=== PATIENT | female | born 1950 | race Two or more races ===

== ENCOUNTER 2020-08-23 20:40 | Emergency (ER) | payer OTHER ==
[~2020-08-23] VITALS: Ht 154.9 cm; Wt 62.6 kg
[~2020-08-23 20:40] MED LIST: IBUPROFEN800 MG PO; LOTREL 5-10 MG1 CAP; ORPH100T PO
[2020-08-23] MEDS ORDERED: AMLODIPINE BESYL5 MG PO (21:24)
[2020-08-23] MEDS ORDERED: CANDESARTAN CIL16 MG PO (21:24)
[2020-08-24] MEDS ORDERED: DOLOGESIC 500-1 EACH PO (00:42)
== END 2020-08-24 01:09 ==
LOC: ER 20:40
DX: R51.9 Headache, unspecified (principal); Z20.828 Contact with and (suspected) exposure to other viral communicable diseases

== ENCOUNTER 2022-07-31 19:28 | Emergency (ER) | payer OTHER ==
[~2022-07-31] VITALS: Ht 154.9 cm; Wt 61.7 kg
[~2022-07-31 19:28] MED LIST changes: +AMLODIPINE BESYL5 MG PO; +CANDESARTAN CIL16 MG PO; +DOLOGESIC 500-1 EACH PO
== END 2022-07-31 22:59 | disposition home or self-care (01) ==
LOC: ER 19:28
DX: K40.90 Unilateral inguinal hernia, without obstruction or gangrene, not specified as recurrent (principal); Z88.6 Allergy status to analgesic agent

== ENCOUNTER 2025-05-22 20:22 | Emergency (ER) | payer OTHER ==
[~2025-05-22] VITALS: Ht 154.9 cm; Wt 59.0 kg
[2025-05-22] MEDS ORDERED: ACETAMINOPHEN 500 MG GEL..CAP PO ONE ×2 (21:21→21:30)
[2025-05-22] MEDS ORDERED: CEFTRIAXONE SODIUM 1,000 MG VIAL ONE (21:22)
[2025-05-22] MEDS ORDERED: DIPHTH,PERTUSS(ACELL),TET VAC 0.5 ML SYRINGE IM ONE (21:22)
[2025-05-22] MEDS ORDERED: DIPHTH,PERTUSS(ACELL),TET VAC 0.5 ML VIAL IM ONE (21:30)
[2025-05-22] MEDS ORDERED: CEFTRIAXONE SODIUM 1,000 MG VIAL IM ONE (21:30)
[2025-05-22] MEDS ORDERED: AMOX-CLAV 875-1 EACH PO (21:41)
[2025-05-22] MEDS ORDERED: ACETAMINOPHEN500 M1 PO (21:41)
== END 2025-05-22 22:22 | disposition home or self-care (01) ==
LOC: ER 20:23
DX: S50.871A Other superficial bite of right forearm, initial encounter (principal); S60.571A Other superficial bite of hand of right hand, initial encounter; W54.0XXA Bitten by dog, initial encounter; Y93.89 Activity, other specified; Y92.018 Other place in single-family (private) house as the place of occurrence of the external cause; Z88.8 Allergy status to other drugs, medicaments and biological substances; I10 Essential (primary) hypertension
CPT/HCPCS: 90471; 90714; J1670